=== PATIENT | male | born 1995 | race Caucasian/White ===

== ENCOUNTER 2017-01-12 11:54 | Emergency (ER) | payer BC, OTHER ==
[~2017-01-12] VITALS: Ht 177.8 cm; Wt 115.7 kg
[2017-01-12 12:08] VITALS: TEMP 37.7; Ht 177.8 cm; Wt 115.7 kg
[2017-01-12] MEDS ORDERED: SULFAMETHOXAZOLE/TRIMETHOPRIM DS 800/160MG TAB PO STA (13:38)
[2017-01-12] MEDS ORDERED: SODIUM CHLORIDE 0.9% 1000ML 1,000 ML IV STA (13:38)
[2017-01-12] MEDS ORDERED: CEFAZOLIN SOD 1000MG/55 ML D5W IV STA (13:38)
[2017-01-12] MEDS ORDERED: OPTIRAY 320 IV PRN (13:45)
[2017-01-12 14:11] LABS: BASO % 0.1 %; BASO ABS # 0.01 K/uL (0-0.2); COMPLETE YES; EOS % 0.1 %; HEMATOCRIT 45.9 % (42-52); IG% 0.4 %; LYMPH % 9.5 %; LYMPH ABS # 1.04 K/uL (1.2-3.4); MEAN CELL VOLUME 84.8 fL (80-100); MEAN CORPUSCULAR HEMOGLOBIN 30.7 pg (25-34); MEAN CORPUSCULAR HGB CONC 36.2 g/dl (32-36); MEAN PLATELET VOLUME 10.6 fL (7.4-10.4); MONO % 11.7 %; NEUT % 78.2 %; PLATELET COUNT 188 K/uL (130-400); RED BLOOD COUNT 5.41 M/uL (4.7-6.1)
[2017-01-12 14:31] LABS: BUN/CREATININE RATIO 7.1 (10-20); CALCIUM 9.4 mg/dl (8.5-10.1); CREATININE 0.95 mg/dl (0.60-1.40); POTASSIUM 3.5 mmol/L (3.5-5.1)
--- NOTE | 2017-01-12 15:42 | DIAGNOSTIC IMAGING REPORT ---
MAXILLOFACIAL CT WITH CONTRAST CLINICAL HISTORY: Left sided face cellulitis including eye TECHNIQUE: Axial images of the face were obtained following intravenous injection of 94 cc of Optiray 320 IV. Sagittal and coronal reconstructions were viewed. COMPARISON STUDY: None. FINDINGS: Visualized portions of the intracranial contents are unremarkable. There is extensive left facial subcutaneous infiltration with skin thickening consistent with cellulitis. There is no fluid collection to suggest an abscess. There are prominent left periparotid lymph nodes which are asymmetrical increased in size when compared to the right-sided cervical lymph nodes. These are reactive. The epiglottis is normal. Visualized portions of the airway are patent. The globes are intact. There is no post septal abnormality. Mastoid air cells are clear. There is no fluid within the middle ears. Ossicles are intact. Sinuses are clear. Major vasculature of the upper neck is patent. The parotid glands are symmetric in appearance. IMPRESSION: 1. Extensive left facial subcutaneous infiltration and skin thickening consistent with cellulitis. The etiology for this infectious process is not clear on this exam. No abscess. 2. Prominent left facial and upper cervical lymph nodes which are reactive. Electronically signed by: Jc Acosta M.D. 01/12/2017 3:41 PM Dictated Date/Time: 01/12/2017 3:36 PM
[2017-01-12] MEDS ORDERED: SULF800T23 PO (16:14)
[2017-01-12] MEDS ORDERED: CEPH500C PO (16:14)
[2017-01-12 16:48] VITALS: BP 134/79; PULSE 101; O2SAT 96
--- NOTE | 2017-01-12 18:16 | EMERGENCY ROOM VISIT NOTE ---
History Report prepared by Aliyah: Kirsty Edwards Under the Supervision of: Dr. Troy Lin D.O. First contact with patient: 13:15 Chief Complaint: INFECTION Stated Complaint: SWOLLEN L FACE,FACIAL CELLULITIS Nursing Triage Summary: Left side of the face with redness and swelling of the cheekbone. Left ear red and swollen. He relates that he can feel a cyst at the site. Sent by Urgent care. History of Present Illness The patient is a 21 year old male who presents to the Emergency Room with complaints of worsening swelling in his neck starting 2 days ago. The swelling and redness began on the side of his neck 2 days ago. Yesterday morning, the redness had spread up into his jawline. By yesterday evening, the redness had spread into his face. This morning the redness was present up under his eye and ear. The outer ear is now painful to touch. He has pain with scrunching his eyes. He was seen at urgent care around 1130 today. He had a mild fever at that time. He denies any cough, rhinorrhea, sore throat, chest pain, SOB, or dysuria. He has no trouble swallowing. He has no pain with movement of his eye or jaw. He denies any dental pain. There is a cyst in the back of the neck, but he reports that was there previously and he reports no drainage. Source of History: patient Onset: 2 days ago Position: neck Quality: other (swelling) Timing: worsening Associated Symptoms: No SOB, No chest pain, No cough, No sorethroat, No urinary symptoms Note: Pt reports swelling and redness spreading to his jaw and face. Pt denies rhinorrhea. Review of Systems See HPI for pertinent positives & negatives. A total of 10 systems reviewed and were otherwise negative. Family History Pt reports no pertinent family history. Social History Smoking Status: Never Smoker Marital Status: single Occupation Status: [employer] student Current/Historical Medications Scheduled Cephalexin Monohydrate (Keflex), 500 MG PO QID Sulfamethoxazole-Trimethoprim (Bactrim Ds 800MG/160MG), 1 TAB PO BID Allergies Coded Allergies: No Known Allergies (Unverified , 01/12/17) Physical Exam Vital Signs Date Time Temp Pulse Resp B/P Pulse Ox O2 Delivery O2 Flow Rate FiO2 01/12/17 16:48 101 16 134/79 96 01/12/17 14:04 110 20 136/79 97 Room Air 01/12/17 12:08 37.7 120 18 152/96 97 Room Air Physical Exam GENERAL: sitting up in bed, disheveled, no acute distress. EYE EXAM: normal conjunctiva FACE: fullness just inferior to left angle of jaw without appreciable abscess, surrounding erythema tracking up the face and above the left eyebrow and inferior to the left leg around the cheek. It does not track to the nose. No proptosis. No pain with movement of the eye. No erythema of the lids. EARS: Left ear erythematous and tender to palpation. TMs clear bilaterally. OROPHARYNX: no exudate, no erythema, lips, buccal mucosa, and tongue normal and mucous membranes are moist NECK: supple, no nuchal rigidity, no adenopathy, non-tender LUNGS: Clear to auscultation. Normal chest wall mechanics HEART: tachycardic rate. no murmurs, S1 normal and S2 normal ABDOMEN: abdomen soft, non-tender, normo-active bowel sounds, no masses, no rebound or guarding. UPPER EXTREMITIES: upper extremities are grossly normal. LOWER EXTREMITIES: No pitting edema. NEURO EXAM: Normal sensorium, cranial nerves II-XII grossly intact, normal speech, no gross weakness of arms, no gross weakness of legs. Medical Decision & Procedures ER Provider Diagnostic Interpretation: Radiology results have been interpreted by the radiologist and reviewed by me. MAXILLOFACIAL CT WITH CONTRAST CLINICAL HISTORY: Left sided face cellulitis including eye TECHNIQUE: Axial images of the face were obtained following intravenous injection of 94 cc of Optiray 320 IV. Sagittal and coronal reconstructions were viewed. COMPARISON STUDY: None. FINDINGS: Visualized portions of the intracranial contents are unremarkable. There is extensive left facial subcutaneous infiltration with skin thickening consistent with cellulitis. There is no fluid collection to suggest an abscess. There are prominent left periparotid lymph nodes which are asymmetrical increased in size when compared to the right-sided cervical lymph nodes. These are reactive. The epiglottis is normal. Visualized portions of the airway are patent. The globes are intact. There is no post septal abnormality. Mastoid air cells are clear. There is no fluid within the middle ears. Ossicles are intact. Sinuses are clear. Major vasculature of the upper neck is patent. The parotid glands are symmetric in appearance. IMPRESSION: 1. Extensive left facial subcutaneous infiltration and skin thickening consistent with cellulitis. The etiology for this infectious process is not clear on this exam. No abscess. 2. Prominent left facial and upper cervical lymph nodes which are reactive. Electronically signed by: Jc Acosta M.D. 01/12/2017 3:41 PM Dictated Date/Time: 01/12/2017 3:36 PM Laboratory Results 01/12/17 13:58 Red Blood Count 5.41, Mean Corpuscular Volume 84.8, Mean Corpuscular Hemoglobin 30.7, Mean Corpuscular Hemoglobin Concent 36.2, Mean Platelet Volume 10.6, Neutrophils (%) (Auto) 78.2, Lymphocytes (%) (Auto) 9.5, Monocytes (%) (Auto) 11.7, Eosinophils (%) (Auto) 0.1, Basophils (%) (Auto) 0.1, Neutrophils # (Auto ) 8.52, Lymphocytes # (Auto) 1.04, Monocytes # (Auto) 1.28, Eosinophils # (Auto ) 0.01, Basophils # (Auto) 0.01 01/12/17 13:58 Test 01/12/17 13:58 White Blood Count 10.90 K/uL (4.8-10.8) Red Blood Count 5.41 M/uL (4.7-6.1) Hemoglobin 16.6 g/dL (14.0-18.0) Hematocrit 45.9 % (42-52) Mean Corpuscular Volume 84.8 fL (80-100) Mean Corpuscular Hemoglobin 30.7 pg (25-34) Mean Corpuscular Hemoglobin Concent 36.2 g/dl (32-36) Platelet Count 188 K/uL (130-400) Mean Platelet Volume 10.6 fL (7.4-10.4) Neutrophils (%) (Auto) 78.2 % Lymphocytes (%) (Auto) 9.5 % Monocytes (%) (Auto) 11.7 % Eosinophils (%) (Auto) 0.1 % Basophils (%) (Auto) 0.1 % Neutrophils # (Auto) 8.52 K/uL (1.4-6.5) Lymphocytes # (Auto) 1.04 K/uL (1.2-3.4) Monocytes # (Auto) 1.28 K/uL (0.11-0.59) Eosinophils # (Auto) 0.01 K/uL (0-0.5) Basophils # (Auto) 0.01 K/uL (0-0.2) RDW Standard Deviation 40.6 fL (36.4-46.3) RDW Coefficient of Variation 13.2 % (11.5-14.5) Immature Granulocyte % (Auto) 0.4 % Immature Granulocyte # (Auto) 0.04 K/uL (0.00-0.02) Anion Gap 11.0 mmol/L (3-11) Est Creatinine Clear Calc Drug Dose 154.1 ml/min Estimated GFR () 130.2 Estimated GFR (Non- 112.4 BUN/Creatinine Ratio 7.1 (10-20) Calcium Level 9.4 mg/dl (8.5-10.1) Laboratory results per my review. Medications Administered Medications (Trade) Dose Ordered Sig/Van Route Start Time Stop Time Status Last Admin Dose Admin Sodium Chloride (Nss 1000ml) 1,000 ml @ 999 mls/hr Q1H1M STAT IV 01/12/17 13:38 01/12/17 14:38 DC 01/12/17 13:38 999 MLS/HR Cefazolin Sodium (Ancef 1000mg/55 ml D5W) 1,000 mg NOW STAT IV 01/12/17 13:38 01/12/17 13:43 DC 01/12/17 14:07 1,000 MG Trimethoprim/ Sulfamethoxazole (Septra Ds 800/ 160MG Tab) 1 tab NOW STAT PO 01/12/17 13:38 01/12/17 13:43 DC 01/12/17 14:07 1 TAB ED Course ED COURSE: Vital signs were reviewed and showed tachycardia. The patients medical record was reviewed The above diagnostic studies were performed and reviewed. ED treatments and interventions as stated above. 1329: The patient was evaluated in room B9. A complete history and physical examination was performed. 1338: Trimethoprim/Sulfamethoxazole 1 tab PO, Cefazolin Sodium 1000 mg IV, NSS 1000 ml @ 999 mls/hr IV. 1611: Upon reevaluation, the patient is resting comfortably. I offered the patient further evaluation, but he declined. I discussed my findings with the patient and he understands and agrees with the treatment plan. Based on the patients age, coexisting illnesses, exam and lab findings the decision to treat as an outpatient was made. The patient remained stable while under my care. The patient appeared well at the time of discharge. Medical Decision Differential diagnosis includes etiologies such as cellulitis, abscess, MRSA infection, DVT, necrotizing fasciitis, dermatitis, drug eruption, as well as others were entertained. Patient is a 21-year-old male who presents the ER for swelling and redness of his left cheek. He is referred in by [facility] just above the hospital. He notes the swelling and redness has been present for the past 48 hours has been worsening. He denies any recorded fevers at home. Upon presentation he was tachycardic. Labs show no significant leukocytosis or anemia. BMP was unremarkable. Vitals show a tachycardia. CT of the face supports a cellulitis without a septal cellulitis. No abscess seen on CT. No involvement of dentition. Patient was given IV antibiotics along with oral Bactrim. Offered admission but patient preferred to be worked up as an outpatient. I felt this was reasonable and he is discharged on Bactrim and Keflex. We scheduled him up appointment tomorrow morning at 7 AM. Stressed the importance of any pain with movement of his left eye or any involvement of the redness of his lids she should return immediately to the ER. Discussed with Pt concerning signs and symptoms to watch out for. Pt was instructed to follow up with their PCP and discussed with the patient their option to return to the ED at anytime for persistent or worsening symptoms. The appropriate anticipatory guidance and out-patient management, including indications for return to the emergency department, were explained at length to the patient and understood. Impression Primary Impression: Preseptal cellulitis Scribe Attestation The scribe's documentation has been prepared under my direction and personally reviewed by me in its entirety. I confirm that the note above accurately reflects all work, treatment, procedures, and medical decision making performed by me. Departure Information Dispostion Home / Self-Care Prescriptions Sulfamethoxazole-Trimethoprim (Bactrim Ds 800MG/160MG) 1 Tab Tab 1 TAB PO BID, #20 TAB Prov: Troy Lin, DO 01/12/17 Cephalexin Monohydrate (Keflex) 500 Mg Cap 500 MG PO QID, #40 CAP Prov: Troy Lin, DO 01/12/17 Referrals No Doctor, Assigned (PCP) Forms HOME CARE DOCUMENTATION FORM, IMPORTANT VISIT INFORMATION, WORK / SCHOOL INSTRUCTIONS Patient Instructions ED Cellulitis Facial, [facility] Additional Instructions Please follow up with your primary care doctor with in the next 24 hours. Any worsening of your symptoms, please return to the ED immediately. This includes persistent fevers greater than 100.4, worsening swelling around your eye, trouble with your vision, pain with movement of your left eye, swelling of your eyelid, redness of your eyelid, protrusion of your eye, or any other concerning signs or symptoms from your standpoint. Please take antibiotics as prescribed. Please take motrin or Tylenol as needed for pain or fevers.
== END 2017-01-12 16:25 | disposition home or self-care (01) ==
LOC: C.EDB 11:57
DX: L03.211 Cellulitis of face (principal); R59.0 Localized enlarged lymph nodes

== ENCOUNTER → 2018-05-24 | Outpatient (CLI) | payer BC, OTHER ==
--- NOTE | 2018-05-24 13:27 | DIAGNOSTIC IMAGING REPORT ---
LEFT SHOULDER 3 VIEWS HISTORY: LEFT SHOULDER PAIN COMPARISON: None. FINDINGS: There is no fracture or dislocation. Soft tissues are unremarkable. No radiopaque foreign bodies. The left clavicle is intact. IMPRESSION: No fracture or dislocation within the left shoulder. Electronically signed by: Manuel Sifuentes M.D. 05/24/2018 1:26 PM Dictated Date/Time: 05/24/2018 1:25 PM
== END | disposition home or self-care (01) ==
LOC: C.RDSM 11:35
PROVIDERS: ATTEND Family Medicine
DX: M25.512 Pain in left shoulder (principal)